=== PATIENT | female | born 2005 | race American Indian/Alaskan Native ===

== ENCOUNTER 2025-05-28 14:17 | Emergency (ER) | payer BC, SELFPAY ==
[2025-05-28 14:28] VITALS: BP 125/70; PULSE 98; RESP 14; TEMP 37.7; O2SAT 94; BMI 18.4
--- NOTE | 2025-05-28 14:28 | ED.GENADULT ---
HPI - General Adult General Chief complaint: General Medical Stated complaint: very bad headache Time Seen by Provider: 05/28/25 17:33 History of Present Illness ED Provider: MAKAYLA ZHANG MD HPI narrative: 19-YEAR-OLD FEMALE WITH NO SIGNIFICANT PAST MEDICAL HISTORY COMES IN FOR A LESION THAT IS TENDER ON THE BOTTOM OF THE LEFT FOOT NEAR THE 2ND OR 3RD MTP PLANTAR REGION. SHE READ ON GOOGLE AND HAS CONCERNED THAT THIS IS AN STD. AT TRIAGE SHE COMPLAINED OF HEADACHE SHE DID NOT COMPLAIN OF HEADACHE OR OTHER SYMPTOMS PARTICULARLY NO SYMPTOMS SHE IS NOT SEXUALLY ACTIVE NOW 3 MONTHS AGO SHE REPORTS ?KISSING AND TOUCHING ?WITH THE HAND OF THE PRIVATE PARTS NO PENETRATION OF INTERCOURSE. Related Data Allergies Allergy/AdvReac Type Severity Reaction Status Date / Time Penicillins Allergy Unknown Verified 05/28/25 14:33 [facility] Social History Social History Advance Directives: No Advance Directives Information Provided: No Do you have a plan to hurt others: No Plan Physical Exam ED Exam Exam: GENERAL: Well appearing. No apparent distress. Alert. HEAD/NECK: No visual trauma. EYES: Normal to inspection. No conjunctival erythema. No discharge. ENMT: Hearing grossly normal. External nose normal. RESPIRATORY: Respiratory effort normal. CARDIOVASCULAR: Additional details (Grossly well perfused). SKIN: No jaundice. NEUROLOGICAL: Alert. Moving all extremities x4. Additional details (No gross motor deficits. Normal tone. ). PSYCHIATRIC: Alert. Appearance appropriate for situation. SKIN: PLANTAR ASPECT BASE OF THE 2ND AND 3RD DIGIT WITH A TENDER FLESH COLORED LESIONS CENTRAL PINPOINT DARK APPEARANCE. THIS IS CONSISTENT WITH A PLANTAR WART Vital Signs: Vital Signs - 24 hr 05/28/25 14:28 Temperature 99.9 F Pulse Rate 98 Respiratory Rate 14 Blood Pressure 125/70 Pulse Oximetry 94 Oxygen Delivery Method Room Air BMI result Body Mass Index 18.4 Course Course Course Narrative: Rapid medical examination performed in triage by Sharmin Bright PA-C. Patient is a 19 year old assigned female at presenting to the emergency department with a headache and left foot lesion. Detailed physical exam and review of systems are deferred to the spun paste machine operator. Labs ordered. Patient placed back in the waiting room pending room availability and results. Medical Decision Making Medical Decision Making MDM Narrative: 19-YEAR-OLD FEMALE CONCERN FOR ACUTE ON CHRONIC LESION LEFT FOOT CONSISTENT WITH A PLANTAR WART. NO TRAUMA. NO INFECTION. NO SYMPTOMS. 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 NO SYMPTOMS TO SUGGEST STI. NO RISKS FOR THIS. REASSURING URINALYSIS PATIENT WAS REASSURED THE PATIENT WILL NEED PODIATRY FOLLOW UP Lab Data 05/28/25 14:47 05/28/25 14:47 Labs: Lab Results 05/28/25 Range/Units 14:47 WBC 8.1 (4.8-10.8) X10*3/uL RBC 4.72 (4.20-5.50) X10*6/uL Hgb 14.5 (12.0-16.0) g/dl Hct 43.4 (37.0-47.0) % MCV 91.9 (80.0-98.0) fL MCH 30.7 (27.0-33.0) pg MCHC 33.4 (31.0-35.0) g/dl RDW 12.9 (11.0-16.0) % Plt Count 179 (160-400) X10*3/uL MPV 10.2 (9.4-12.3) fL Immature Gran % (Auto) 0.2 (0.0-0.4) % Neut % (Auto) 84.3 H (45-73) % Lymph % (Auto) 8.8 L (20-40) % Mellette % (Auto) 6.5 (2-11) % Eos % (Auto) 0.1 (0-4) % Baso % (Auto) 0.1 (0-2) % Lymph # (Auto) 0.7 L (1.2-4.9) X10*3/uL Mellette # (Auto) 0.5 (0.1-1.2) X10*3/uL Eos # (Auto) 0.0 (0.0-0.4) X10*3/uL Baso # (Auto) 0.0 (0.0-0.2) X10*3/uL Abs Immat Gran (auto) 0.02 (0.00-0.03) X10*3/uL Absolute Neuts (auto) 6.8 (2.0-8.3) x10*3/uL Absolute Nucleated RBC 0.000 (0.0-0.012) X10*3/uL Nucleated RBC % (auto) 0.0 (0.0-0.2) /100WBC Sodium 139 (135-145) mmol/L Potassium 3.7 (3.3-5.1) mmol/L Chloride 104 (96-108) mmol/L Carbon Dioxide 26 (22-29) mmol/L Anion Gap 13 (12-20) BUN 10 (9-16) mg/dL Creatinine 0.75 (0.5-1.4) mg/dL Estim Creat Clear Calc 89.7 Estimated GFR > 60 Random Glucose 123 H (60-115) mg/dL Calcium 9.8 (8.4-10.2) mg/dL Magnesium 2.1 (1.6-2.6) mg/dL Total Bilirubin 0.7 (0.0-1.0) mg/dL AST 28 (5-31) U/L ALT 18 (0-31) U/L Alkaline Phosphatase 96 (39-117) U/L Total Protein 8.1 H (6.5-8.0) g/dL Albumin 5.2 H (3.5-5.0) g/dL Beta HCG, Quant < 2 mIU/mL Ur N gonorrhoeae DNA (PCR) NOT DETECTED (Not Detect.) Ur Chlamydia DNA (PCR) NOT DETECTED (Not Detect.) COVID-19 (AMANDA) Negative (Negative) COVID-19 Clin Com See Note Monoscreen Negative (Negative) Influenza Type A (JESS) Negative (Negative) Influenza Type B (JESS) Negative (Negative) Influenza A & B Note See Note Discharge Plan Discharge Clinical Impression: Plantar wart Patient Disposition: Home, Self-Care Instructions: Plantar Wart (ED) Additional Instructions: WE DISCUSSED THE APPEARANCE ON YOUR FOOT IS SUGGESTIVE OF A PLANTAR WART. WE TRIED TO REASSURE YOU ALTHOUGH HUMAN PAPILLOMA VIRUS CAUSES MOST PLANTAR WARTS THERE ARE MANY DIFFERENT STRAINS AND THIS IS UNLIKELY TO BE RELATED TO ANY TYPE OF SEXUAL CONTACT. YOU HAD A NORMAL URINALYSIS AND A NEGATIVE CHLAMYDIA AND GONORRHEA TESTING AND WE CANCELED THE REST OF THE STI TESTING GIVEN OUR DISCUSSION WE HAD. WE RECOMMEND WEARING PADDED WITH OR WITHOUT SALICYLIC ACID [id number] PLANTAR WART TREATMENT PADS FOR THE SHOE INSERT AND FOLLOW UP WITH PODIATRY Referrals: [facility] [Outside, Podiatry] Interventions: ED Discharge Assessment Last Done: 05/28/25 17:47 Discharge Date/Time: 05/28/25 17:48 Print Language: Norwegian
--- OUTSIDE RECORDS SUMMARY | 2025-05-28 14:51 | XMS_ITS | Encounter Summary ---
Author Organization [facility] Address [address] [place] [address] Care Team Providers Care Insulation Worker Furnace Installer Name Role Phone Holli Richardson MD Primary Care Provider [phone] Encounter Details Date Type Department Care Team (Late st Contact Info) Description 01/21/2022 Language Services LANGUAGE SERVICES [address] [facility] [address] [place] [address] Christiano Neil Social History Tobacco Use Types Packs/Day Years Used Date Smoking Tobacco: Never Smokeless Tobacco: Never Alcohol Use Standard Drinks/Week Comments Not Asked 0 (1 standard drink = 0.6 oz pur e alcohol) Comments No Sex and Gender Information Value Date Recorded Sex Assigned at Not on file Legal Sex Female 9:47 AM PDT Gender Identity Not on file Sexual Orientation Not on file documented as of this encounter Plan of Treatment Not on file documented as of this encounter Visit Diagnoses Not on filedocumented in this encounter Care Teams Insulation Worker Furnace Installer Relationship Specialty Start Date End Date Holli Richardson MD [address] [facility] [address] [place] [address] PCP - General Pediatrics 09/04/16 07/19/23 documented as of this encounter
--- OUTSIDE RECORDS SUMMARY | 2025-05-28 14:51 | XMS_ITS | Encounter Summary ---
Author Organization [facility] Address [address] [place] [address] Care Team Providers Care Institutional Custodian Name Role Phone Holli Richardson MD Primary Care Provider [phone] Encounter Details Date Type Department Care Team (Late st Contact Info) Description 03/13/2021 Language Services LANGUAGE SERVICES [address] [facility] [address] [place] [address] Lio Andrade Social History Tobacco Use Types Packs/Day Years [...] on filedocumented in this encounter Care Teams Institutional Custodian Relationship Specialty Start Date End Date Holli Richardson MD [address] [facility] [address] [place] [address] PCP - General Pediatrics 09/04/16 07/19/23 documented as of this encounter
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
--- OUTSIDE RECORDS SUMMARY | 2025-05-28 14:51 | XMS_ITS | Clinical Summary ---
Author Organization [facility] Address [address] [place] [address] Care Team Providers Care Library Historian Name Role Phone Alma Carrington MD Primary Care Pr ovider Source Comments This information has been disclosed to you from records protected by Federal confidentiality rules (42 CFR part 2). The Federal rules prohibit you from making any further disclosure of this information unless further disclosure is expressly permitted by the written consent of the person to whom it pertains or as otherwise permitted by 42 CFR part 2. A general authorization for the release of medical or other information is NOT sufficient for this purpose. The Federal rules restrict any use of the information to criminally investigate or prosecute any alcohol or drug abuse patient.[facility] Allergies No known active allergies Medications No known medications Active Problems No known active problems Family History Medical History Relation Comments No Current problems or disability Father No Current problems or disability Mother Relation Status Comments Father Mother Social History Tobacco Use Types Packs/Day Years Used Date Smoking Tobacco: Never Smokeless Tobacco: Never Core Social Determinants of Health Screening Que stions Answer Date Recorded Unable to Pay for Housing in the Last Year Not o n file 04/16/2024 Number of Places Lived in the Last Year Not on f ile 04/16/2024 Unstable Housing in the Last Year Not on file 04/16/2024 Comments No Sex and Gender Information Value Date Recorded Sex Assigned at Female 09/17/2024 12:26 PM PST Legal Sex Female 4:09 PM PDT Gender Identity Female 09/17/2024 12:26 PM PST Sexual Orientation Not on file Last Filed Vital Signs Vital Sign Reading Time Taken Comments Blood Pressure 119/79 05/01/2021 7:42 PM PDT Pulse 74 05/01/2021 7:42 PM PDT Temperature 36.7 C (98 F) 05/01/2021 7:42 PM PDT Respiratory Rate 16 05/01/2021 7:42 PM PDT Oxygen Saturation 98% 05/01/2021 7:42 PM PDT Inhaled Oxygen Concentration - - Weight 43.3 kg (95 lb 6.4 oz) 05/01/2021 7:42 PM PDT Height 157 cm (5' 1.81 ) 05/01/2021 7:42 PM PDT Body Mass Index 17.56 05/01/2021 7:42 PM PDT Body Mass Index Percentile 15.05% 05/01/2021 7:4 2 PM PDT Growth Chart: CDC (Girls, 2- 20 Years) Plan of Treatment Health Maintenance Due Date Last Done Comments INFLUENZA VACCINE 04/15/2025 09/17/2024, , 07/13/2018, Additional history exists CHLAMYDIA SCREENING 04/16/2025 04/16/2024 GONORRHEA SCREENING 04/16/2025 04/16/2024 COVID-19 Vaccine ( season) 2025 06/15/2022, 10/07/2021, 03/13/2021, Additional history exists DTaP,Tdap,or Td Vaccine (7 - Td or Tdap) 03/08/2026 03/08/2016, 01/26/2010, 03/04/2008, Additional history exists HEPATITIS B VACCINE Completed 07/07/2006, 04/29/2006, 02/27/2006 MMR VACCINE ADULT Completed 04/07/2012, 01/27/2007 VARICELLA VACCINE Completed 03/31/2017, 06/18/2016 HEPATITIS A VACCINE Completed 07/13/2018, 7 HPV VACCINE Completed 07/13/2018, 06/03/2017 MENINGOCOCCAL ACWY VACCINE Aged Out 09/12/2022, No longer eligible based on patient's age to complete this topic HEPATITIS C SCREENING Completed 04/16/2024 UNIVERSAL HIV SCREENING Completed 04/16/2024 PNEUMOCOCCAL VACCINE 0-49 YEARS Aged Out No longer eligible based on patient's age to complete this topic Procedures Procedure Name Priority Date/Time Associated Diagnosis Comments HEPATITIS C ANTIBODY Routine 04/16/2024 7:56 PM PDT HIV 1 & 2 AB/AG SCRN, W/REFLEX Routine 04/16/2024 7:56 PM PDT GC & CHLAMYDIA NUCLEIC ACID AMPLIFICATION Routine 04/16/2024 7:55 PM PDT from Last 3 Months or Most Recently Relevant to Health Maintenance Results * HIV 1 & 2 AB/AG SCRN, W/REFLEX (04/16/2024 7:56 PM PDT) HIV1/HIV2 Non Reactive Non Reactive 04/17/2024 2:02 PM PDT [facility] [phone] Comment: This fourth generation immunoassay shows no detectable antibodies to HIV-1 (groups M and O) and HIV-2, and the HIV-1 p24 antigen. Plasma 04/16/2024 7:56 PM PDT 04/16/2024 7:56 PM PDT Alma Carrington MD LAB IMMUNOSEROLO GY Final Result Performing Organization Address City/[facility]/ZIP Co de Phone Number [facility] [address] [place], [place] [id number] [facility] [phone] [address] [place] [address] * HEPATITIS C ANTIBODY (04/16/2024 7:56 PM PDT) Hepatitis C Antibody Non Reactive Non Reactive 04/16/2024 10:43 PM PDT [facility] [phone] Comment:Antibodies to HCV no t detected. Does not exclude early acute HCV infection. Serum 04/16/2024 7:56 PM PDT 04/16/2024 7:56 PM PDT us Alma Carrington MD LAB IMMUNOSEROLO GY Final Result Performing Organization Address City/[facility]/ZIP Co de Phone Number [facility] [address] [place] [address], [facility] [phone] [facility] [phone] [address] [place] [address] * GC & CHLAMYDIA NUCLEIC ACID AMPLIFICATION (04/16/2024 7:55 PM PDT) CHLAMYDIA AMP RESULT Not Detected Not Detected 04/19/2024 12:44 PM PDT [facility] [phone] GC AMP RESULT Not Detected Not Detected 04/19/2024 12:44 PM PDT [facility] [phone] Comment: Negative results do not exclude the possibility of infection. Interpretation of all results must include clinical evaluation of the patient and other diagnostic procedures. This test was performed by [employer] Nucleic Acid Amplification (PCR) methodology. Urine 04/16/2024 7:55 PM PDT 04/16/2024 7:55 PM PDT Alma Carrington MD LAB MICROBIOLOGY Final Result [facility] [address] [place] [address] [facility] [phone] [address] [place] [address] from Last 3 Months or Most Recently Relevant to Health Maintenance Insurance [employer] Care Teams Library Historian Relationship Specialty Start Date End Date Alma Carrington MD [address] [place] [address] [address] [place] [address] PCP - General Pediatrics 09/17/24
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
--- OUTSIDE RECORDS SUMMARY | 2025-05-28 14:51 | XMS_ITS | Clinical Summary ---
Author Organization [facility] (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 by positive quantiferon and w/ negative CXR in 12/202104/01/22: Starting course of 3 months of once weekly INH 750mg (15mg/kg) and once weekly rifapentine 750mg, and daily pyridoxine 25mg Will f/u in 4-6 weeks to check liver function Social History Tobacco Use Types Packs/Day Years Used Date Smoking Tobacco: Never Smokeless Tobacco: Never Housing Answer Date Recorded Housing Situation Not on file 08/22/2023 Housing Concerns Not on file 08/22/2023 Housing Situation - Registration [id number] 08/22/2023 Housing Answer Date Recorded Housing Situation Rent or Own 04/01/2022 Comments Unknown Sex and Gender Information Value Date Recorded Sex Assigned at Female 04/01/2022 3:33 PM PDT Legal Sex Female 11:03 AM PDT Gender Identity Female 04/01/2022 3:33 PM PDT Sexual Orientation Choose not to disclose 2021 3:33 PM PDT Last Filed Vital Signs Vital Sign Reading Time Taken Comments Blood Pressure 96/59 04/01/2022 4:01 PM PDT Pulse 69 04/01/2022 4:01 PM PDT Temperature 36.7 C (98 F) 04/01/2022 4:01 PM PDT Respiratory Rate - - Oxygen Saturation - - Inhaled Oxygen Concentration - - Weight 46.5 kg (102 lb 8 oz) 04/01/2022 4:01 PM PDT Height 158.5 cm (5' 2.4 ) 04/01/2022 4:01 PM PDT Body Mass Index 18.51 04/01/2022 4:01 PM PDT Body Mass Index Percentile 21.46% 04/01/2022 4:0 1 PM PDT Growth Chart: [facility] (Girls, 2- 20 Years) Plan of Treatment Health Maintenance Due Date Last Done Comments HIV Screening 2005 [facility] Vital Signs ([facility]) 2017 Chlamydia Screening 2021 Needs PHD SOP Order 10/25/2023 10/25/2022, 3 Needs [facility] SOP Order 10/25/2023 10/25/2022, 10/25/19 23 Hepatitis C Screening 12/29/2023 [facility] COVID-19 Vaccine ( season) 2025 10/07/2021, 03/13/2021, 02/01/2021 Influenza Vaccine (#1) 2025 8, 08/18/2017, 09/05/2016, Additional history exists DTaP,Tdap,and Td Vaccines (7 - Td or Tdap) 03/08/2026 03/08/2016, 01/26/2010, 03/04/2008, Additional history exists HIB Vaccines Aged Out 07/07/2006, 04/15, 02/27/2006 No longer eligible based on patient's age to complete this topic Hepatitis B Vaccines Completed 07/07/2006, 04/29/2006, 02/27/2006 MMR Vaccines Completed 04/07/2012, 01/27/2007 IPV Vaccines Completed 03/31/2017, 10/16, 05/07/2006, Additional history exists Varicella Vaccines Completed 03/31/2017, 06/18/2016 Meningococcal Vaccine Aged Out 06/03/2017 No mckayla obey eligible based on patient's age to complete this topic HPV Vaccines Completed 07/13/2018, 06/03/2017 Hepatitis A Vaccines Completed 07/13/2018, 03/31/20 17 Pneumococcal Vaccine: Pediatrics (0 to 5 Years) and At-Risk Patients (6 to 49 Years) Aged Out No longer eligible based on patient's age [place] [phone]
--- OUTSIDE RECORDS SUMMARY | 2025-05-28 14:51 | XMS_ITS | Clinical Summary ---
Author Organization [facility] Address [address] [place] [address] Care Team Providers Care Stone Engraver Name Role Phone Unavailable Primary Care Provider Unavailabl e Source Comments NOTE: The information displayed is extracted from the complete medical record and may not identify all current or past patient conditions.[facility] Allergies Active Allergy Reactions Criticality Noted [...] mcg/0.3mL dose 03/13/2021,02/01/2021 Tdap 03/08/2016 Varicella 03/31/2017,06/18/2016 Family History Medical History Relation Name Comments Allergic rhinitis Neg Hx Asthma Neg Hx Cancer Neg Hx Coronary artery disease Neg Hx Diabetes Neg Hx Hypertension Neg Hx Tuberculosis Neg Hx Relation Name Status Comments Father Alive Mother Alive Social History Tobacco Use Types Packs/Day Years [...] 12.82% 03/26 11:05 AM PDT Growth Chart: [facility] (Girls, 2- 20 Years) Plan of Treatment Health Maintenance Due Date Last Done Comments HIV Screening 2021 Chlamydia Screening 12/29/2023 Quantiferon Screening 12/29/2023 Staying Healthy Assessment (SHA) 12/29/2023 COVID-19 Vaccine ( season) 2025 06/15/2022, 10/07/2021, 03/13/2021, Additional history exists Influenza Vaccine (#1) 2025 2, 07/13/2018, 08/18/2017, Additional history exists DTaP/ Tdap/Td Vaccines (7 - Td or Tdap) 03/08/2026 03/08/2016, 01/26/2010, 03/04/2008, Additional history exists Hepatitis A Vaccines Completed 07/13/2018, 03/31/20 17 Pneumococcal Immunizations Aged Out N o longer eligible based on patient's age to complete this topic
[2025-05-28 14:55] LABS: MANUAL DIFF FLAG NO
[2025-05-28 14:58] LABS: Hematocrit 43.4 % (37.0-47.0); Hemoglobin 14.5 g/dl (12.0-16.0); Imm Gran Abs Auto 0.02 X10*3/uL (0.00-0.03); Imm Gran Pct Auto 0.2 % (0.0-0.4); Lymphocytes Absolute Auto 0.7 X10*3/uL (1.2-4.9); Mean Corpuscular HGB Conc 33.4 g/dl (31.0-35.0); Mean Corpuscular Hemoglobin 30.7 pg (27.0-33.0); Mean Corpuscular Volume 91.9 fL (80.0-98.0); NRBC Abs Auto 0.000 X10*3/uL (0.0-0.012); NRBC Pct Auto 0.0 /100WBC (0.0-0.2); Platelet Count 179 X10*3/uL (160-400); Red Blood Count 4.72 X10*6/uL (4.20-5.50); White Blood Count 8.1 X10*3/uL (4.8-10.8)
[2025-05-28 15:16] LABS: IDNOW Serial# 55D5AD1C; Influenza B2 Negative (Negative)
[2025-05-28 15:17] LABS: COVID-19 Test Negative (Negative); IDNOW Serial# 58CA691E
[2025-05-28 15:29] LABS: Alanine Aminotransferase 18 U/L (0-31); Albumin Level 5.2 g/dL (3.5-5.0); Alkaline Phosphatase 96 U/L (39-117); Anion Gap 13 (12-20); Aspartate Amino Transferase 28 U/L (5-31); Blood Urea Nitrogen 10 mg/dL (9-16); Calcium 9.8 mg/dL (8.4-10.2); Carbon Dioxide 26 mmol/L (22-29); Chloride 104 mmol/L (96-108); Creatinine Clr Calc Pharmacy 89.7; Estimated Glomerular Filt Rate > 60; Magnesium 2.1 mg/dL (1.6-2.6); Potassium 3.7 mmol/L (3.3-5.1); Sodium 139 mmol/L (135-145); Total Protein 8.1 g/dL (6.5-8.0)
[2025-05-28 16:45] LABS: CT PCR Urine NOT DETECTED (Not Detect.); NG PCR Urine NOT DETECTED (Not Detect.)
[2025-05-28 17:47] VITALS: BP 125/70; PULSE 98; RESP 14; TEMP 37.7; O2SAT 94
[2025-05-30 08:21] LABS: Syphilis Screen Nonreactive (Nonreactive)
[2025-05-30 08:26] LABS: HIV Num 1 0.07 S/CO (0.00-0.99)
[2025-05-30 21:33] LABS: Lyme Abs Screen <0.90 index
[2025-06-01 21:09] LABS: A. Phagocytphilium DNA,RT-PCR NOT DETECTED (NOT DETECTED); Babesia Microti DNA, RT-PCR NOT DETECTED (NOT DETECTED); Borrelia Miyamotoi,DNA RT-PCR NOT DETECTED (NOT DETECTED); E.Chaffeensis DNA RT-PCR NOT DETECTED (NOT DETECTED); Lyme(Borrelia ssp)DNA RT-PCR NOT DETECTED (NOT DETECTED)
== END 2025-05-28 17:48 | disposition home or self-care (01) ==
PROVIDERS: Physician Assistant Medical; Emergency Provider Emergency Medicine
DX: B07.0 Plantar wart (principal); Z03.818 Encounter for observation for suspected exposure to other biological agents ruled out
CPT/HCPCS: 36415; 80053; 83735; 84702; 85025; 86308; 86617; 86618; 86780; 87389; 87468; 87469; 87478; 87484; 87491; 87502; 87591; 87635; 87798; 99282; 99283